=== PATIENT | female | born 2000 | race Caucasian/White ===

== ENCOUNTER 2020-11-15 18:26 | Emergency (ER) | payer MEDICARE, OTHER ==
[~2020-11-15] VITALS: Ht 165.1 cm; Wt 59.3 kg
--- NOTE | 2020-11-15 19:16 | NUR ---
pt placed on coin purse framer bed and coin purse framer cart at bedside
[2020-11-15] MEDS ORDERED: ACETAMINOPHEN 500 MG TABLET PO ONE (19:30)
[2020-11-15] MEDS ORDERED: ACETAMINOPHEN 500 MG TABLET ONE (19:34)
--- NOTE | 2020-11-15 19:37 | NUR ---
TASK RN: [employer]PER[employer]ENDENT PER JUL.
[2020-11-15 19:39] LABS: BASOPHILS % (AUTO) 1 % (0-1); EOSINOPHILS % (AUTO) 1 % (1-7); LYMPHOCYTES % (AUTO) 17 % (22-44); MEAN CORPUSCULAR HEMOGLOBIN 30.7 pg (27.0-34.8); MEAN CORPUSCULAR HGB CONC 33.3 g/dL (32.4-35.8); MEAN PLATELET VOLUME 8.6 fL (7.4-10.4); MONOCYTES % (AUTO) 5 % (2-9); NEUTROPHILS % (AUTO) 77 % (42-75); PLATELET COUNT 202 x10^3/uL (130-400); RED BLOOD COUNT 4.27 x10^6/uL (3.82-5.3)
[2020-11-15 19:45] LABS: ALANINE AMINOTRANSFERASE 22 U/L (12-78); ANION GAP 6 mmol/L (5-15); CALCIUM 9.1 mg/dL (8.5-10.1); CHLORIDE 105 mmol/L (98-107)
[2020-11-15 20:02] LABS: ALKALINE PHOSPHATASE 61 U/L (45-117); BILIRUBIN,TOTAL 0.5 mg/dL (0.2-1.0); TOTAL PROTEIN 7.7 g/dL (6.4-8.2)
--- NOTE | 2020-11-15 20:43 | NUR ---
US AT BEDSIDE.
--- NOTE | 2020-11-15 21:40 | NUR ---
FLOAT RN AT BEDSIDE TO DC PT FOR PRIMARY RN, ANTHONY. PT AND SPOUSE PROVIDED DEMISE LOSS KIT. DISCUSSED SUPPORT GROUPS, ETC. PT AND SPOUSE APPRECIATIVE, TEARFUL, AND RECEPTIVE TO INFORMATION. PT AMBULATORY TO CHECKOUT C STEADY GAIT. VSS.
[2020-11-15 21:41] VITALS: BP 112/66
== END 2020-11-15 21:45 | disposition home or self-care (01) ==
LOC: ED 20:28
DX: O36.4XX0 Maternal care for intrauterine death, not applicable or unspecified (principal); Z3A.20 20 weeks gestation of pregnancy
CPT/HCPCS: 36415; 76801; 80053; 84702; 85025; 86901; 99284